=== PATIENT | female | born 1995 | race Caucasian/White ===

== ENCOUNTER 2023-06-02 15:33 | Emergency (ER) | payer OTHER, SELFPAY ==
--- NOTE | ~2023-06-02 | CT_ITS ---
EXAMINATION: CT brain wo con DATE: 06/02/2023 17:09 INDICATION: DIZZINESS . TECHNIQUE: Computed tomography (CT) of the head was performed in the intravenous contrast. The mA was adjusted according to patient size. Iterative reconstruction technique was employed. The dose-length product was 605.33 mGy-cm. COMPARISON: None. FINDINGS: No acute intracranial hemorrhage or extra-axial fluid collection. No hydrocephalus, mass, or herniation. No acute ischemic infarct. Unremarkable dural venous sinus attenuation. No acute osseous abnormality. The aerated spaces are clear. IMPRESSION: No acute intracranial process. Reviewed, dictated and finalized at location K. D AIDE
[2023-06-02 15:37] VITALS: BP 129/76; PULSE 74; RESP 16; TEMP 36.7; O2SAT 99
[2023-06-02 15:39] VITALS: BP 129/76; PULSE 74
--- NOTE | 2023-06-02 15:39 | ED.GENADULT ---
HPI - General Adult General Chief complaint: Recheck/Abnormal Lab/Rx Stated complaint: blood pressure check Time Seen by Provider: 06/02/23 15:37 Source: patient Mode of arrival: ambulatory Limitations: no limitations History of Present Illness HPI narrative: 27 YEARS OLD WHITE FEMALE DROVE HERSELF TO THE EMERGENCY ROOM COMPLAINING OF DIZZINESS OVER 6 MONTHS. WAS SEEN BY HER FAMILY PHYSICIAN WHO REFERRED HER TO ENT, WHO PLACED TYMPANIC TUBES BILATERALLY MARCH 2023. PATIENT REPORTED THAT HER DIZZINESS GOT WORSE AFTER THE TUBES PLACEMENT. EARLY HER DIZZINESS WORSE WHEN SHE GET UP FROM LYING DOWN POSITION TO STANDING POSITION. AFTER THE TUBES PLACEMENT GET DIZZINESS WITH EVERYTHING SPINNING ASSOCIATED WITH INTERMITTENT NAUSEA AND VOMITING. PATIENT IS TELLING ME THE SHE VOMITED AT LEAST 8 TIME IN THE LAST 2 MONTHS. IN THE LAST 3 DAYS BEEN FEELING WEAK TIRED FATIGUED AND MORE DIZZY. SHE DENIES ANY FEVER, CHILLS, NAUSEA, VOMITING OR RESPIRATORY SYMPTOMS. WAS SEEN BY HER ENT 3 DAYS AGO WHO REFERRED HER TO GO TO OTOLARYNGOLOGY Review of Systems Review of Systems: All systems reviewed & are unremarkable except as noted in HPI and below Exam Narrative: GENERAL APPEARANCE: WELL-DEVELOPED, WELL-NOURISHED SKIN: PALE HEAD: NORMOCEPHALIC, NONTRAUMATIC EYES: CLEAR CONJUNCTIVA ENT: OROPHARYNX NORMAL, EARS NORMAL, NOSE NORMAL NECK: SUPPLE, NONTENDER CHEST AND RESPIRATORY: AIRWAY PATENT, NO RESPIRATORY DISTRESS, NO ACCESSORY MUSCLE USE HEART: REGULAR RATE/RHYTHM ABDOMEN: SOFT, NONTENDER, NO ORGANOMEGALY, QUIET BOWEL SOUNDS VASCULAR: NORMAL PERIPHERAL PULSES, NORMAL CAPILLARY REFILL. MUSCULOSKELETAL: NORMAL RANGE OF MOTION, NONTENDER BACK NEUROLOGIC: ALERT AND ORIENTED ?3, PATIENT REPRESENTATIVE IS NORMAL TESTED, NO GROSS MOTOR DEFICIT Course Vital Signs Vital signs: Vital Signs Temperature 36.7 C 06/02/23 15:37 Pulse Rate 74 06/02/23 15:37 Respiratory Rate 16 06/02/23 15:37 Blood Pressure 129/76 06/02/23 15:37 Pulse Oximetry 99 06/02/23 15:37 Temperature 36.7 C 06/02/23 15:37 Pulse Rate 65 06/02/23 16:48 Respiratory Rate 16 06/02/23 16:48 Blood Pressure 112/72 06/02/23 16:48 Pulse Oximetry 97 06/02/23 16:48 Medical Decision Making MDM Narrative Medical decision making narrative: 27 YEARS OLD WHITE FEMALE DROVE HERSELF TO THE EMERGENCY ROOM COMPLAINING OF DIZZINESS OVER LAST 6 MONTHS GOT WORSE AFTER TYMPANIC TUBE PLACEMENT BY HER ENT, WAS SEEN BY HER ENT 3 DAYS AGO WHO REFERRED HER TO ANOTHER SPECIALIST. VITAL SIGNS STABLE PHYSICAL EXAMINATION IS UNREMARKABLE DIFFERENTIAL DIAGNOSIS, DEPRESSION, INTRACRANIAL ABNORMALITY, ORTHOSTATIC HYPOTENSION, ELECTROLYTE IMBALANCE, DEHYDRATION, ANEMIA. WORKUP TODAY INCLUDE BLOOD WORKUP, CT HEAD, URINALYSIS, RESPIRATORY VIRAL PANEL SHOWED NO ACUTE ABNORMALITIES. AT THE TIME DISCHARGE PATIENT REPORTED THAT HER SYMPTOM GOT WORSE AFTER TYMPANIC TUBES PLACEMENT. AND HER ENT TOLD HER THAT IS NORMAL AND NEED TO BE PATIENT FOR THE SYMPTOMS TO GET BETTER. . THE PT WAS DISCHARGED TO HOME.THE PT,S CONDITION UPON DISCHARGE WAS FAIR,EDUCATION WAS PROVIDED TO THE PT IN REFERENCE TO THE FINAL IMPRESSION,DISCHARGE STUDY RESULTS,TREATMENT,PROGNOSIS AND NEED FOR FOLLOW UP . Differential Diagnosis Differential Diagnosis: ABOVE Medical Records Medical records reviewed: Yes I reviewed the external patient's medical records. Vital Signs Vital Signs: Vital Signs Temperature 36.7 C 06/02/23 15:37 Pulse Rate 74 06/02/23 15:37 Respiratory Rate 16 06/02/23 15:37 Blood Pressure 129/76 06/02/23 15:37 Pulse Oximetry 99 06/02/23 15:37 Temperature 36.7 C 06/02/23 15:37 Pulse
[2023-06-02 15:40] VITALS: BP 123/80; BP 129/81; PULSE 120; PULSE 92
--- NOTE | 2023-06-02 15:51 | PC.NURSE ---
Luz Maria balderrama for pat couple of months when she is laying down then stands up she feels dizzy. Also reports has felt fatigued since Sunday
[2023-06-02 15:56] LABS: Basophils Percent Auto 0.7 % (0.2-1.2); Eosinophils Absolute Auto 0.1 K/mm3 (0-0.3); Eosinophils Percent Auto 0.9 % (0-4.4); Hematocrit 43.6 % (37.0-47.0); Hemoglobin 14.3 g/dL (12.0-15.0); Immature Granulocyte Absolute 0.02 K/mm3 (0.00-0.031); Immature Granulocyte Percent A 0.4 % (0-0.5); Lymphocytes Absolute Auto 1.67 K/mm3 (0.9-3.2); Lymphocytes Percent Auto 30.9 % (18.3-44.2); Mean Corpuscular HGB Conc 32.8 g/dl (32-36); Mean Corpuscular Hemoglobin 30.2 pg (26-34); Mean Corpuscular Volume 92.2 fl (80-100); Monocytes Absolute Auto 0.3 K/mm3 (0.1-0.6); Monocytes Percent Auto 5.9 % (2.6-8.5); Neutrophils Absolute Auto 3.3 K/mm3 (1.3-6.7); Neutrophils Percent Auto 61.2 % (45.5-73.1); Platelet Count Result 242 k/mm3 (150-375); Red Blood Count 4.73 M/mm3 (4.2-5.4); Red Cell Distribution Width 11.9 % (11.5-14.5); White Blood Count 5.4 K/mm3 (4.5-10.0)
[2023-06-02 16:07] LABS: Alanine Aminotransferase 18 U/L (6-35); Albumin Level 4.9 g/dL (3.5-5.1); Alkaline Phosphatase 51 U/L (38-126); Anion Gap 12 mmol/L (8-16); Aspartate Amino Transferase 25 U/L (14-36); Bilirubin,Total 1.5 mg/dL (0.2-1.3); Blood Urea Nitrogen 11 mg/dL (7-17); Calcium 9.5 mg/dL (8.4-10.2); Carbon Dioxide 22 mmol/L (22-30); Chloride 104 mmol/L (98-107); Estimated CRCL calculation 98 ml/min; Estimated Glomerular Filt Rate > 60; Glucose 87 mg/dL (65-110); Potassium 3.8 mmol/L (3.4-5.0); Sodium 138 mmol/L (137-145)
[2023-06-02 16:40] LABS: Appearance Urine Cloudy (Clear); Bacteria Urine 3+ /hpf; Bilirubin Urine Negative (Negative); Blood Urine 1+ (Negative); Color Urine Yellow (Yellow); Glucose Urine UA Negative (Negative); Ketones Urine 1+ mg/dL (Negative); Leukocyte Esterase Ur Trace LEU/UL (Negative); Nitrate Urine Negative (Negative); Non Pathogenic Casts 0-2; Protein Urine Trace mg/dL (Negative); Specific Grav Ur 1.024 (1.001-1.035); Squamous Epithelial Cell Urine Moderate /hpf (Few); pH Urine 6.5 (5.0-9.0)
[2023-06-02 16:43] LABS: Add Urine Microscopic? YES
[2023-06-02 16:48] VITALS: BP 112/72; PULSE 65; RESP 16; O2SAT 97
[2023-06-02 17:10] LABS: Influenza A QL RT-PCR Negative (Negative); Influenza B QL RT-PCR Negative (Negative); RSV RNA, RT-PCR Negative (Negative); SARS-CoV-2 RNA PCR Negative (Negative)
[2023-06-02 19:50] VITALS: BP 126/76; PULSE 67; RESP 17; O2SAT 100
== END 2023-06-02 19:52 | disposition home or self-care (01) ==
PROVIDERS: Emergency Provider Emergency Medicine
DX: R42 Dizziness and giddiness (principal); R53.1 Weakness; Z20.822 Contact with and (suspected) exposure to COVID-19
CPT/HCPCS: 36415; 70450; 80053; 81001; 81025; 85025; 87086; 87637; 99284

== ENCOUNTER 2025-03-05 19:26 | Outpatient (CLI) | payer OTHER, SELFPAY | END 2025-03-05 20:45 | disposition home or self-care (01) | LOC: ANHOBPP 19:47 → ANHOBOP 20:36 → ANHOBPP 20:48 | PROVIDERS: Visit Provider Obstetrics & Gynecology | DX: Z39.2 Encounter for routine postpartum follow-up (principal) | CPT/HCPCS: 99199 ==